=== PATIENT | male | born 1980 | race African-American/Black ===

== ENCOUNTER 2016-11-05 22:12 | Emergency (ER) | payer MEDICARE, OTHER ==
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
[~2016-11-05 22:12] MED LIST: CIPRODEX OTIC7.5 ML OT
== END 2016-11-05 22:27 | disposition home or self-care (01) ==
LOC: CFTX 22:12
DX: S13.9XXA Sprain of joints and ligaments of unspecified parts of neck, initial encounter (principal); S23.3XXA Sprain of ligaments of thoracic spine, initial encounter; S33.5XXA Sprain of ligaments of lumbar spine, initial encounter; I10 Essential (primary) hypertension; V49.40XA Driver injured in collision with unspecified motor vehicles in traffic accident, initial encounter
CPT/HCPCS: 72040; 72072; 72100; 99284